=== PATIENT | female | born 1995 | race Caucasian/White ===

== ENCOUNTER 2022-09-28 08:21 | Emergency (ER) | payer OTHER, SELFPAY ==
[2022-09-28 08:22] VITALS: BP 136/82; PULSE 116; RESP 16; TEMP 36.6; O2SAT 98; BMI 30.5
--- NOTE | 2022-09-28 08:58 | EDS_ITS ---
HPI History of Present Illness Chief Complaint: Nausea/Vomiting Informant: patient and parent Narrative Narrative: Patient is a 26-year-old female with history of prior tonsillectomy as a teenager presenting with nausea, vomiting and concern for dehydration in the setting of recent diagnosis of strep throat. Patient was seen at [facility] urgent care on Sunday (2 days ago). Test positive for strep and started on amoxicillin. Since being on amoxicillin she has had nausea, vomiting and diarrhea. States he is feeling sick. She is not really able to keep anything down. She denies any fever. She has been around her niece and nephew who have been sick with colds but none of them have had any sore throat. She continues to have a sore throat. Denies any difficulty swallowing or change in her speech. Denies any significant abdominal pain. Denies any urinary symptoms. No other complaints at this time. Last menstrual period was 2 weeks ago and is not concerned for . PFSH PFSH Medical History no medical history Home Medications azithromycin 250 mg tablet (Zithromax Z-Derrick) See Rx Instructions PO .COMPLEX #6 tabs 09/28/22 [Rx Last Taken Unknown] ondansetron 4 mg disintegrating tablet 4 mg PO Q6H PRN nausea and vomiting #20 tabs 09/28/22 [Rx Last Taken Unknown] Allergy/AdvReac Type Severity Reaction Status Date / Time No Known Allergies Allergy Verified 09/28/22 08:22 Social History Smoking Status: Never smoker ROS ROS ED Constitutional Constitutional ED: Denies chills or fever(s) Eyes Eyes: Denies change in vision ENT ENT ED: Reports sore throat; Denies ear pain or rhinorrhea Cardiovascular Cardiovascular: Denies chest pain or palpitations Respiratory/Chest Respiratory/Chest: Denies cough or dyspnea Gastrointestinal Gastrointestinal: Reports diarrhea, nausea and vomiting; Denies abdominal pain Genitourinary Genitourinary ED: Denies dysuria or hematuria Musculoskeletal Musculoskeletal: Denies arthralgias or myalgias Integumentary Denies rash Neurologic Neurologic: Denies headache(s) Psychiatric Psychiatric: Reports anxiety EXAM Physical Exam Const Vital Signs: 09/28/22 08:22 Temperature 97.8 F Temperature Source Temporal Pulse Rate 116 H Respiratory Rate 16 Blood Pressure 136/82 H Blood Pressure Mean 100 Pulse Ox 98 Oxygen Delivery Method Room Air Positive well nourished and well developed General Appearance ED: well developed and NAD HEENT Reports TM's clear and dry mucous membranes HEENT Narrative: Status post tonsillectomy. Mild erythema of the posterior oropharynx present. Uvula is midline. Tympanic Membrane ED: Yes TM's clear Mouth ED: Yes dry mucous membranes Mouth: dry mucous membranes Eyes PERRL Neck no lymphadenopathy and supple Neck Narrative: Normal range of motion of the neck. No meningeal signs. General: tenderness Chest Wall inspection of chest normal and palpation of chest normal Resp normal respiratory effort and clear to auscultation bilaterally Cardio regular rate, regular rhythm and no murmurs GI normal to inspection, nondistended, normoactive bowel sounds and non-tender Palpation: Negative for guarding Extremity normal to inspection Neuro oriented x3 Sensorium / Orientation: alert Motor Exam: Negative for general weakness Psych mental status grossly normal Mood & Affect: anxious and tearful Skin no rashes or lesions noted and no wounds MDM MDM MDM Narrative Medical decision making narrative: Patient evaluated for nausea, vomiting and diarrhea in the setting of recent strep throat diagnosis. Differential includes gastroenteritis, medication, dehydration electrolyte abnormality. Physical exam is not consistent with peritonsillar retropharyngeal abscess. Patient clinically is unlikely to really have strep pharyngitis as she is already had a tonsillectomy and is possible she is chronically colonized however I will switch her antibiotics. Patient has a mild leukocytosis of 11.1, mild anemia with a hemoglobin 11.3 that is microcytic and significantly elevated platelet count of 872. I suspect this is dehydration related. After 1 L of fluid patient still not urinated and her bicarb is 19. Her potassium is mildly low at 3.1. Urinalysis finally obtained after 2 L of IV fluid. She does have 150 ketones, 1+ bacteria with signs of contamination. I will send her urine for culture but I do not think she requires antibiotics for UTI. I suspect patient is not tolerating the amoxicillin versus has gastroenteritis. She is treated with a prescription for Zofran and her amoxicillin to switch to azithromycin which she has tolerated in the past. She is given return precautions. She given referral to her primary care doctor. She is given referral to hematology given her CBC abnormalities and counseled that she is to follow-up for repeat check in 1 week. Patient verbalizes agreement understand this plan. Discharged home in improved and stable condition. Lab Data Labs: Laboratory Results - last 24 hr 09/28/22 09/28/22 09/28/22 09:15 09:15 12:40 WBC 11.1 H RBC 5.11 Hgb 11.3 L Hct 39.8 MCV 77.9 L MCH 22.1 L MCHC 28.4 L RDW Std Deviation 48.8 H RDW Coeff of [place] 17.3 H Plt Count 872 H* MPV 9.1 Immature Gran % (Auto) 0.500 Neut % (Auto) 73.4 H Lymph % (Auto) 15.3 L [place] % (Auto) 5.8 Eos % (Auto) 4.5 Baso % (Auto) 0.5 Absolute Neuts (auto) 8.1 H Absolute Lymphs (auto) 1.70 Nucleated RBC % 0 Diff Path Review May foll Sodium 140 Potassium 3.1 L Chloride 111 H Carbon Dioxide 19.0 L Anion Gap 10 BUN 8 Creatinine 0.57 Estim Creat Clear Calc 130.29 Est GFR (MDRD) Af Amer 165 Est GFR (MDRD) Non-Af 136 BUN/Creatinine Ratio 14.0 Glucose 92 Calcium 9.2 Total Bilirubin 0.30 AST 9 L ALT 12 L Alkaline Phosphatase 78 Total Protein 8.7 H Albumin 3.6 Globulin 5.1 H Albumin/Globulin Ratio 0.7 L Lipase 71 L Urine Color Yellow Urine Clarity Sl. Cloudy Urine pH 6.0 Ur Specific [place] 1.025 Urine Protein 30 H Urine Glucose (UA) Normal Urine Ketones 150 A* Urine Occult Blood 10 H Urine Nitrite Negative Urine Bilirubin Negative Urine Urobilinogen Normal Ur Leukocyte Esterase 25 H Urine RBC 0-5 SEEN Urine WBC 0-5 SEEN Ur Squamous Epith Cells 0-5 SEEN Urine Bacteria 1+ Urine Mucus 0 SEEN Urine Test Negative Discharge Plan Triage Chief Complaint: Nausea/Vomiting ED Provider: Reina Lacy Dx/Rx/DC Orders Clinical Impression: Acute dehydration, Nausea and vomiting, Elevated platelet count Instructions: ED Dehydration (Adult), ED Vomiting (Adult) Prescriptions: New azithromycin [Zithromax Z-Derrick] 250 mg tablet See Rx Instructions .ROUTE .COMPLEX Qty: 6 0RF Rx Instructions: For 250 mg dose pack: take 500 mg today (day 1), then 250 mg for 4 days (days 2-5) ondansetron 4 mg tablet,disintegrating 4 mg PO Q6H PRN (Reason: nausea and vomiting) Qty: 20 0RF Primary Care Provider: Care Physician,No Primary Referrals: Paula Rubin MD [Med Staff - Scale Shooter] - As soon as possible Kayden Zavala MD [Med Staff - Active Staff] - 10/05/22 NOT,DEFINED [Non-Staff] - Activity Restrictions/Additional Instructions: Please stop taking the amoxicillin and start taking the azithromycin (prescribed today). Your platelets were elevated today and I recommend you follow-up with hematology (Dr. Zavala or one of his partners) for recheck in 1 week. Call today to make an appointment. In addition your lab work did not show signs of anemia. Disposition Disposition: Home, Self Care Discharge Date/Time: 09/28/22 13:35
[2022-09-28] MEDS: 0.9% Normal Saline 1,000 ML 1000 ML IV ×2 (09:24→11:07)
[2022-09-28] MEDS: Ondansetron 4 MG/2 ML Vial IV (09:24)
[2022-09-28 09:26] LABS: Absolute Neutrophil Count 8.1 X10^3/uL (2.0-7.7); Basophil# 0.06 X10^3/uL; Basophil% 0.5 % (0-1); Eosinophils% 4.5 % (0-5); Hematocrit 39.8 % (37-47); Hemoglobin 11.3 g/dL (12.0-15.0); Lymphocyte % 15.3 % (19-41); Mean Corp Hgb Conc 28.4 g/dL (32-36); Mean Corpuscular Hgb 22.1 pg (27.0-32.0); Mean Corpuscular Volume 77.9 fL (81-99); Mean Platelet Vol. 9.1 fl (6.2-12.0); Monocyte# 0.64 X10^3/uL; Monocyte% 5.8 % (0-10); NRBC Flagged by Analyzer 0 % (0-5); Neutrophil # 8.12 X10^3/uL (2.7-7.7); Neutrophil % 73.4 % (47-70); POSITIVE COUNT YES; RBC Distribution Width CV 17.3 % (11.6-14.6); RBC Distribution Width SD 48.8 fl (35.1-43.9); Red Blood Count 5.11 M/mm3 (4.2-5.4); White Blood Count 11.1 K/mm3 (4.4-11.0)
[2022-09-28 09:29] LABS: Platelet Count 872 K/mm3 (150-450)
[2022-09-28 09:43] LABS: ALB/GLOB Ratio 0.7 RATIO (0.9-2.4); AST(SGOT) 9 U/L (15-37); Alanine Aminotransfer ALT/SGPT 12 U/L (13-56); Albumin, Serum 3.6 g/dL (3.2-5.0); Alkaline Phosphatase 78 U/L (45-117); Anion Gap 10 (5-15); BUN 8 mg/dL (7-18); Calcium,Total 9.2 mg/dL (8.5-10.1); Chloride 111 mmol/L (98-107); Creatinine, Serum 0.57 mg/dL (0.55-1.02); EST Glomerular Filtration Rate 136 mL/min (>60); Est Glom Filt Rate - Afr Amer 165 mL/min (>60); Estimated Creatinine Clearance 130.29 ml/min; Globulin 5.1 g/dL (2.2-4.2); Glucose 92 mg/dL (74-106); Lipase 71 U/L (73-393); Potassium 3.1 mmol/L (3.5-5.1); Protein, Total 8.7 g/dL (6.4-8.2); Sodium Level 140 mmol/L (136-145)
[2022-09-28] MEDS: Ketorolac 15 MG/ML Vial IV (11:06)
[2022-09-28] MEDS: dexAMETHasone 10 MG/ML Vial PO.IVFORM (11:07)
--- NOTE | 2022-09-28 12:11 | CM.ED ---
SW Note Referral Source: Case Find Referral Reason: No Primary Care Physician (PCP) SW reviewed chart and noted that patient has no PCP. SW provided patient with list of [facility] and [facility] Physician List for reference. No other issues or concerns voiced at this time. SW remains available for any additional needs. Plan: Provided patient with PCP information Siliva ZAVALA
[2022-09-28 12:47] LABS: Mucous, Urine 0 SEEN /hpf (<or=2+)
[2022-09-28 12:50] LABS: Color, Urine Yellow (Yellow); Glucose, Dipstick Normal (Normal); Leukocyte Esterase-Dipstick 25 /ul (Negative); Nitrite-Dipstick Negative (Negative); Occult Blood-Urine 10 /ul (Negative); Protein-Dipstick 30 mg/dl (Negative); Specific Gravity, Urine 1.025 (1.002-1.030); Urine Bilirubin Dipstick Negative (Negative); Urine Clarity Sl. Cloudy (Clear); Urine Urobilinogen Normal (Normal)
[2022-09-28 12:52] LABS: Ketone-Dipstick 150 mg/dl (Negative)
[2022-09-28 13:01] LABS: Bacteria 1+ /hpf (None Seen); Red Blood Cells-Urine 0-5 SEEN /hpf (0-5); Squamous Epithelial Cells - UA 0-5 SEEN /hpf (5-10); White Blood Cells 0-5 SEEN /hpf (0-5)
[2022-09-28 13:02] LABS: Internal QC Validated? YES +Cl - CLEAR BKGD; Pregnancy, Urine Negative Negative
[2022-09-29 09:50] LABS: Pathologist Review Reviewed
== END 2022-09-28 13:35 | disposition home or self-care (01) ==
PROVIDERS: Emergency Provider Emergency Medicine; Visit Provider Emergency Medicine
DX: E86.0 Dehydration (principal); R11.2 Nausea with vomiting, unspecified
CPT/HCPCS: 80053; 81001; 81025; 83690; 85025; 87086; 87088; 96361; 96374; 96375; 99284; J7030; J2405

== ENCOUNTER 2024-04-21 15:43 | Emergency (ER) | payer OTHER, MEDICAID, SELFPAY ==
[2024-04-21 15:43] VITALS: BP 121/70; PULSE 95; RESP 16; TEMP 36.4; O2SAT 100; BMI 30.8
--- NOTE | 2024-04-21 18:12 | EDS_ITS ---
HPI History of Present Illness Chief Complaint: Laceration Narrative Narrative: Chief complaint and HPI: Laceration. 28-year-old female presents for evaluation of laceration to the right thumb on the volar aspect. Laceration is proximal. Patient states this happened approximately 2 hours ago. 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 She states that the bleeding would not resolve which is why she presents. She does not believe she is up-to-date on tetanus. She denies any numbness, tingling. Has full range of motion of the thumb. Review of systems: See HPI Medications: As listed on the chart Allergies: As listed on the chart PFSH: Per chart Vital signs: As listed on the chart. Reviewed. Physical exam: Gen: A&O x3, NAD Head: Normocephalic, atraumatic Eyes: No sclera icterus, conjunctiva clear ENT: Moist mucous membranes CV: Regular Rate Resp: Nonlabored Respirations Musc: Approximately 1.5 cm laceration to the proximal volar aspect of the right thumb, sensation intact, normal capillary refill, full range of motion of the thumb/hand/fingers/wrist, no active bleeding, ulnar and radial pulses plus 2 out of 4. Neuro: Alert, oriented, grossly intact Psych: Cooperative, appropriate mood and affect PFS PFSH Medical History no medical history Home Medications ?Medication ?Instructions ?Recorded ?Last Taken ?Type azithromycin 250 mg tablet See Rx Instructions PO .COMPLEX #6 09/28/22 Unknown Rx (Zithromax Z-Derrick) tabs ondansetron 4 mg disintegrating 4 mg PO Q6H PRN nausea and 09/28/22 Unknown Rx tablet vomiting #20 tabs Allergy/AdvReac Type Severity Reaction Status Date / Time No Known Allergies Allergy Verified 04/21/24 15:45 Social History Smoking Status: Never smoker EXAM Physical Exam Const Vital Signs: 04/21/24 15:43 Temperature 97.5 F L Temperature Source Temporal Pulse Rate 95 Respiratory Rate 16 Blood Pressure 121/70 H Blood Pressure Mean 87 Pulse Ox 100 Oxygen Delivery Method Room Air MDM MDM MDM Narrative Medical decision making narrative: 28-year-old female presents for evaluation of right leg laceration while at work. See physical exam findings. No concern for fracture at this time, imaging not needed. Unknown tetanus status, tetanus updated. Laceration was repaired and patient tolerated this well. Patient was given discharge instructions and was educated that the sutures need to be removed. She confirmed understanding. Patient stable to discharge home. Laceration Repair Indication: Laceration Location: 1.5 cm right thumb Consent: Risks, benefits, and alternatives discussed with patient and consent obtained Procedure: A time out was performed. The area was prepped and draped in the usual sterile fashion. Local anesthesia was achieved using 5 cc of 1% Lidocaine. The wound was copiously irrigated. 4 sutures were placed using 4-0 Ethilon in an interrupted fashion. The estimated blood loss was minimal. A dressing was applied to the area with Bacitracin. The patient tolerated the procedure well without complications. Foreign Material: None Debridement: None Follow-up: Anticipatory guidance, as well as standard post-procedure care, was explained. Return precautions are given. Follow-up visit set for suture removal and evaluation of the laceration. Impression: 1. Right thumb laceration Discharge Plan Triage Chief Complaint: Laceration ED Provider: Cheikh Landis Dx/Rx/DC Orders Clinical Impression: Laceration of thumb, right Instructions: ED Laceration, Hand: All Closures Prescriptions: No Action azithromycin [Zithromax Z-Derrick] 250 mg tablet See Rx Instructions .ROUTE .COMPLEX Qty: 6 0RF Rx Instructions: For 250 mg dose pack: take 500 mg today (day 1), then 250 mg for 4 days (days 2-5) ondansetron 4 mg tablet,disintegrating 4 mg PO Q6H PRN (Reason: nausea and vomiting) Qty: 20 0RF Primary Care Provider: Care Physician,No Primary Referrals: Mandy Benites MD [Med Staff - Aboriginal Education Teacher] - 3-5 Days Care Physician,No Primary [Primary Care Provider] - Activity Restrictions/Additional Instructions: Sutures need to be removed in 7 to 10 days. No hot tubs, swimming pools, lakes, miguel until fully healed. Okay to shower 24 hours. Keep dry. Print Language: Hungarian Disposition Disposition: Home, Self Care
[2024-04-21] MEDS: Diphth,Pertuss(Acell),Tet Vac 0.5 ML Vial IM (18:21)
[2024-04-21] MEDS: Lidocaine 1% (20 ml mdv) 20 ML Vial INFILT (18:34)
[2024-04-21 19:31] VITALS: BP 114/75; PULSE 87; RESP 16; TEMP 36.7; O2SAT 100
== END 2024-04-21 19:31 | disposition home or self-care (01) ==
PROVIDERS: Emergency Provider Surgery; Visit Provider Surgery
DX: S61.011A Laceration without foreign body of right thumb without damage to nail, initial encounter (principal); X58.XXXA Exposure to other specified factors, initial encounter
CPT/HCPCS: 12001; 90715; 99282